=== PATIENT | female | born 1995 | race Caucasian/White ===

== ENCOUNTER 2017-03-13 14:25 | Emergency (ER) | payer OTHER | END 2017-03-13 14:45 | disposition home or self-care (01) | LOC: ER 14:25 | DX: J20.9 Acute bronchitis, unspecified (principal); J02.9 Acute pharyngitis, unspecified; R05 Cough; F17.210 Nicotine dependence, cigarettes, uncomplicated | CPT/HCPCS: 99282 ==

== ENCOUNTER 2017-07-07 08:41 | Emergency (ER) | payer OTHER | END 2017-07-07 09:50 | disposition home or self-care (01) | LOC: ER 08:41 | DX: J06.9 Acute upper respiratory infection, unspecified (principal); R05 Cough; F17.210 Nicotine dependence, cigarettes, uncomplicated | CPT/HCPCS: 99282 ==